=== PATIENT | male | born 1980 | race Caucasian/White ===

== ENCOUNTER 2018-11-24 23:32 | Outpatient (CLI) | payer SELFPAY | END 2018-11-24 23:33 | disposition EMS.NT | LOC: EMS 23:32 | PROVIDERS: ATTEND Surgery | DX: T42.4X5A Adverse effect of benzodiazepines, initial encounter (principal) ==

== ENCOUNTER 2021-11-03 08:00 | Outpatient (CLI) | payer BC ==
[2021-11-03 23:48] LABS: NEISSERIA GONORRHOEAE DNA NEGATIVE (NEGATIVE)
[2021-11-04 00:35] LABS: CHLAMYDIA TRACHOMATIS DNA POSITIVE (NEGATIVE)
[2021-11-05 10:21] LABS: HEPATITIS C ANTIBODY NON-REACTIVE (NON-REACTIVE)
[2021-11-05 14:06] LABS: HIV AG/AB 4TH GEN NON-REACTIVE (NON-REACTIVE)
[2021-11-06 12:42] LABS: HSV 1 IGG TYPE SPECIFIC AB <0.90 index; HSV 2 IGG TYPE SPECIFIC AB <0.90 index
== END 2021-11-03 23:59 ==
LOC: LAB.N 08:00
PROVIDERS: ATTEND Physician Assistant
DX: Z11.3 Encounter for screening for infections with a predominantly sexual mode of transmission (principal)
CPT/HCPCS: 36415; 81599; 86592; 86695; 86696; 86803; 87389; 87491; 87591; 87661

== ENCOUNTER 2022-01-28 12:01 | Outpatient (CLI) | payer BC ==
--- NOTE | 2022-01-28 15:14 | XRAY Report ---
PROCEDURE: Lumbar Spine 2 View INDICATIONS: LOW BACK PX TECHNIQUE: 3 views of the lumbar spine were acquired. COMPARISON: None. FINDINGS: Bones: 5 [id number] vertebrae are present. There is normal bony alignment. No vertebral body compression fractures. No suspicious bony lesions. Disc space narrowing at L4-5 and L5-S1. There is rightward curvature of the lumbar spine. There are mild degenerative changes of the thoracolumbar sp ine. Soft tissues: Overlying bowel gas pattern is normal. No suspicious soft tissue calcifications. IMPRESSION: 1. No acute abnormality. 2. Mild degenerative changes in the thoracolumbar spine. 3. Disc space narrowing of L4-5 and L5-S1 suggestive of disc disease. . Reviewed by: Matthew Salvador on 01/28/2022 3:13 PM PDT Approved by: Matthew Salvador on 01/28/2022 3:13 PM PDT Station ID: [id number]
== END 2022-01-28 23:59 | disposition home or self-care (01) ==
LOC: DI.N 12:01
PROVIDERS: ATTEND Family Medicine
DX: M47.815 Spondylosis without myelopathy or radiculopathy, thoracolumbar region (principal); M47.816 Spondylosis without myelopathy or radiculopathy, lumbar region; M47.817 Spondylosis without myelopathy or radiculopathy, lumbosacral region

== ENCOUNTER 2022-06-11 10:12 | Emergency (ER) | payer BC ==
--- NOTE | 2022-06-11 11:25 | ED Physician Documentation ---
PD HPI URI - Stated complaint Stated Complaint: THROAT PX - Chief complaint Chief Complaint: Heent - History obtained from History obtained from: Patient - History of Present Illness Timing - onset: How many days ago (5) Timing duration: Days (5) Timing details: Gradual onset, Still present Associated symptoms: Fever, Chills, Sore throat, Swollen nodes. No: Nasal congestion, Rhinorrhea, Dry cough Contributing factors: No: Sick contact, Travel, Immunocompromised Improves by: No: Medication (seen at [facility] days ago and started on Prednisone and Amoxicillin. Patient states no improvement with these and felt worse overnight last night.) Worsened by: Other (swallowing) Similar symptoms before: Has not had sx before Recently seen: Clinic Review of Systems Constitutional: reports: Fever, Chills. denies: Fatigue Nose: denies: Rhinorrhea / runny nose, Congestion Throat: reports: Sore throat, Swollen tonsils (just right side). denies: Oral lesions / sores Cardiac: denies: Chest pain / pressure Respiratory: denies: Dyspnea, Cough GI: denies: Abdominal Pain, Nausea, Vomiting, Diarrhea Skin: denies: Rash, Lesions PD PAST MEDICAL HISTORY - Past Medical History Cardiovascular: None Respiratory: None Endocrine/Autoimmune: None - Present Medications Home Medications: Ambulatory Orders Medication Instructions Recorded Confirmed Clindamycin [Cleocin] 300 mg PO QID 7 Days #28 cap 06/11/22 HYDROcod/ACETAM 5/325 [[place] 5/325] 1 ea PO Q6H PRN #12 tablet 06/11/22 Lidocaine Viscous 2% [Xylocaine 5 ml PO Q4H PRN #100 ml 06/11/22 Viscous 2%] - Allergies Allergies/Adverse Reactions: Allergies Allergy/AdvReac Type Severity Reaction Status Date / Time cefaclor [From [facility]] Allergy Unknown Verified 06/11/22 10:36 PD ED PE NORMAL - Vitals Vital signs reviewed: Yes - General General: Alert and oriented X 3, Well developed/nourished, Other (appears in pain swallowing. He has a normal sounding voice. Unlabored breathing. ) - HEENT HEENT: Dentition benign (no gingival swelling nor tenderness along gumlines. ). No: Pharynx benign (right peritonsillar area with general swelling without bulging nor focal fluctuance. Mild exudate on lateral aspect of tonsil. Left side normal. No uvular deviation. No buccal, pallatine abnormalities. ) - Neck Neck: Supple, no meningeal sign, Other (right anterior adenopathy. The submandibular area otherwise without fullness nor firmness. ) - Cardiac Cardiac: RRR, No murmur - Respiratory Respiratory: Clear bilaterally - Derm Derm: Normal color, Warm and dry, No rash Results - Vitals Vitals: Vital Signs - 24 hr 06/11/22 06/11/22 10:31 12:11 Temperature 36.0 C L 37.0 C Heart Rate 93 88 Respiratory 20 18 Rate Blood Pressure 146/93 H 142/93 H O2 Saturation 98 97 Oxygen O2 Source Room air PD MEDICAL DECISION MAKING - ED course Complexity details: reviewed results (had not had throat culture in [facility]. ), considered differential (has appearance of right peritonsillar cellulitis without focal deviation/bulging, so no apparent abscess. Submandibular area without fullness. Has not improved on Amox. Can change to Clindamycin per UpToDate table, and since allergy to cephalosporin. ), d/w patient Departure - Departure Disposition: 01 Home, Self Care Clinical Impression: Peritonsillar cellulitis Condition: Stable Record reviewed to determine appropriate education?: Yes Instructions: ED Peritonsillar Infec Abx No I andD Follow-Up: Libby Vazquez PA-C [Primary Care Provider] - Prescriptions: Clindamycin [Cleocin] 300 mg PO QID 7 Days #28 cap HYDROcod/ACETAM 5/325 [[place] 5/325] 1 ea PO Q6H PRN #12 tablet PRN Reason: Pain Lidocaine Viscous 2% [Xylocaine Viscous 2%] 5 ml PO Q4H PRN #100 ml PRN Reason: Pain Comments: Stop the amoxicillin. Continue the prednisone. I would switch you to clindamycin prescription as prescribed. You do appear to have some infection still around the tonsil area. I do not see an abscess that needs draining. Return to the ER if worsening symptoms but I would anticipate improvement over the next few days. You can use local numbing medicine with lidocaine mixed with Benadryl and Mylanta liquids to help with throat discomfort. Also Tylenol or hydrocodone if needed for pains. I sent your prescriptions to [facility] pharmacy in [place]. Stay well-hydrated. Hopefully the pain medicine would allow better intake. Recheck if not improved well over the next few days. I am prescribing a short course of narcotic pain medication for you. These are potentially dangerous and addictive medications that should be used carefully. These medications may constipate you. Take an ivex-uzj-ecviydp stool softener such as docusate twice daily with plenty of water while taking these medications. If you go 24 hours without a bowel movement, take [id number] MiraLAX, per package instructions. Do not drink or drive while taking these medications. If you received narcotic or sedating medications while in the emergency department do not drive for 24 hours. Store this medication in a safe, secure place and out of reach of children. It is a violation of federal law to give or sell this medication to another person or to use in a manner other than prescribed. The ED will not refill narcotic prescriptions, including prescriptions lost or stolen. You can dispose of unwanted medications at the [facility]'s office or at several pharmacies such as [facility]. Discharge Date/Time: 06/11/22 12:11
[2022-06-11] MEDS ORDERED: CLINDAMYCIN 150 MG CAPSULE PO STA (11:42)
[2022-06-11] MEDS ORDERED: HYDROcod/ACETAM 5/325 MG TABLET PO STA (11:42)
[2022-06-11] MEDS ORDERED: LIDOCAINE VISCOUS 2% 15 ML UDC MM STA (11:42)
[2022-06-11] MEDS ORDERED: diphenhydrAMINE ELIXIR 25 MG/10 ML UDC PO STA (11:42)
[2022-06-11 12:12] VITALS: BP 142/93
== END 2022-06-11 12:11 | disposition home or self-care (01) ==
LOC: ED 10:12
DX: J36 Peritonsillar abscess (principal)
CPT/HCPCS: 99282; 99283; A9270

== ENCOUNTER 2023-08-02 16:10 | Outpatient (CLI) | payer BC ==
--- NOTE | 2023-08-02 17:07 | XRAY Report ---
PROCEDURE: Chest 2 View X-Ray INDICATIONS: BRONCHITIS, ACUTE TECHNIQUE: 2 views of the chest were acquired. COMPARISON: None. FINDINGS: Surgical changes and devices: None. Lungs and pleura: No pleural effusions or pneumothorax. Mildly increased bronchovascular markings in bilateral hilar region are seen with mild bronchial wall thickening. No definite focal infiltrate. Mediastinum: Mediastinal contours appear normal. Heart size is normal. Bones and chest wall: No suspicious bony lesions. Overlying soft tissues appear unremarkable. IMPRESSION: Finding is consistent with mild reactive airway disease such as bronchitis or viral illne ss. No definite focal infiltrate. No pleural effusion or pneumothorax. Reviewed by: Ovidio Neal MD on 08/02/2023 5:05 PM PST Approved by: Ovidio Neal MD on 08/02/2023 5:05 PM PST Station ID: [id number]
== END 2023-08-02 16:11 | disposition home or self-care (01) ==
LOC: DI 16:10
PROVIDERS: ATTEND Family Medicine
DX: J20.9 Acute bronchitis, unspecified (principal)